=== PATIENT | male | born 2005 | race Caucasian/White ===

== ENCOUNTER 2024-04-02 07:51 | Emergency (ER) | payer OTHER, SELFPAY ==
[2024-04-02 08:00] VITALS: BP 116/62; PULSE 91; RESP 19; TEMP 37; O2SAT 99; BMI 23.0
--- NOTE | 2024-04-02 08:13 | ED.GENADULT ---
HPI - General Adult General Chief complaint: Fever Stated complaint: Cough and congestion in chest Time Seen by Provider: 04/02/24 08:07 History of Present Illness [facility] narrative: Otherwise healthy 18-year-old young man presents with upper respiratory complaints on day 5. Noticed initially increased fever dry cough he has been using some herbal teas and supplements but feels that the cough is now centering lower in his chest becoming increasingly painful. His [id number] son has similar findings but seems to be improving. The patient himself is no longer having fevers he does not have a productive cough, throat is somewhat sore but he is able to eat and drink. Related Data Allergies Allergy/AdvReac Type Severity Reaction Status Date / Time No Known Allergies Allergy Uncoded 04/02/24 08:00 Review of Systems Review of Systems Narrative: Pertinent positive and negative findings as per HPI Patient History Social History Smoking Status: Never smoker Smoking Status: Never smoker Exam Initial Vital Signs Initial Vital Signs: Vital Signs Temperature 98.6 F 04/02/24 08:00 Pulse Rate 91 H 04/02/24 08:00 Respiratory Rate 19 04/02/24 08:00 Blood Pressure 116/62 04/02/24 08:00 Pulse Oximetry 99 04/02/24 08:00 Oxygen Delivery Method Room Air 04/02/24 08:00 General: Healthy appearing, in no acute distress. Able to give a complete and coherent history. Well-nourished well-developed HEENT: Moist mucous membranes, normal sclera with reactive pupils, irritated posterior pharynx without obvious exudate Neck: No cervical adenopathy Respiratory: Lungs are clear to auscultation, no wheezing no rales no rhonchi. Full and symmetrical air movement Cardiac: Regular rate and rhythm no murmurs no bruits Skin: Warm and dry, no rashes Neurologic: Grossly neurologically intact with no obvious asymmetries or abnormalities Extremities: No trauma, well perfused Psych: Cooperative, appropriate insight and affect Course Vital Signs Vital signs: Vital Signs - 8 hr 04/02/24 08:00 Temperature 98.6 F Pulse Rate 91 H Respiratory Rate 19 Blood Pressure 116/62 Pulse Oximetry 99 Oxygen Delivery Method Room Air Medical Decision Making [facility] Narrative Medical decision making narrative: 18-year-old young man no significant medical history day 5 of upper respiratory infection with pain secondary to coughing. No hypoxia, vomiting. Clinical exam does not suggest bacterial pneumonia or secondary reactive airway disease complications. We talked about the use of ibuprofen and Tylenol, rectal amended Mucinex and dextromethorphan for symptomatic control. Discussed anticipated course of recovery and reasons to return to the emergency department. At this point there was no indication for additional imaging lab work or hospitalization he is safe for discharge Discharge Plan Departure Patient Disposition: Home Clinical Impression: Acute upper respiratory infection Instructions: DI for Viral Upper Respiratory Infection -- Adult Activity Restrictions/Additional Instructions: Thank you for coming in today I think you have the same viral infection that we have been seeing all over [place] in the last number of weeks. At this time there is no indication of bacterial pneumonia, any evidence of asthma or reactive airway disease. There was no indication for any antibiotics. I would recommend some [id number]-[id number] medications. For the cough Mucinex DM (or the generic version of that) can not be quite effective. Decreasing the cough will help with that central chest pain that you are experiencing. Using 400 mg of ibuprofen (2 [id number] pills) and 1 Tylenol every 6 hours can be very helpful in controlling pain. I expect that you still have another 4-5 days of not feeling 100%. If you find that you have a day or so you feel like your recovered and then develop significant fevers and cough that is coughing up lots of mucus, that would concern me for a secondary bacterial pneumonia that might need antibiotics and does need further evaluation. Please feel free to return to urgent care with the emergency department if that happens. Referrals: Edna Grimm MD [Primary Care Provider] - Stand Alone Forms: Patient Portal/API/Survey
== END 2024-04-02 08:30 | disposition home or self-care (01) ==
PROVIDERS: Emergency Provider Emergency Medicine; Family Provider Family Medicine; PCP Pediatrics
DX: J06.9 Acute upper respiratory infection, unspecified (principal); R50.9 Fever, unspecified; R05.9 Cough, unspecified
CPT/HCPCS: 99281